=== PATIENT | female | born 1930 | race Caucasian/White ===

== ENCOUNTER 2017-02-13 13:16 | Emergency (ER) | payer OTHER ==
[~2017-02-13] VITALS: Ht 154.9 cm; Wt 73.2 kg
[~2017-02-13 13:16] MED LIST: AMLODIPINE BESYL5 MG PO; ASACOL HD800 MG PO; ASPIRIN325 MG PO; BENTYL20 MG PO; CIPRO500 MG PO; DELZICOL400 MG PO; FLAGYL500 MG PO; FOLIC ACID0.4 MG PO; LOPRESSOR25 MG PO; LOSARTAN POTASS25 MG PO; METOPROLOL TART25 MG PO; PAROXETINE HCL20 MG PO; PAXIL20 MG PO; PRAVASTATIN SOD80 MG PO; SIMVASTATIN40 MG PO; TRAMADOL HCL50 MG PO; VITAMIN B-6100 MG PO; VITAMIN B12-FO1 EACH PO
[2017-02-13] MEDS ORDERED: DOXYCYCLINE MO100 MG PO (15:40)
[2017-02-13 15:55] VITALS: BP 200/95
== END 2017-02-13 15:56 | disposition home or self-care (01) ==
LOC: EME 13:16
DX: L03.115 Cellulitis of right lower limb (principal); I10 Essential (primary) hypertension; K21.9 Gastro-esophageal reflux disease without esophagitis; F41.9 Anxiety disorder, unspecified; Z95.1 Presence of aortocoronary bypass graft; Z95.5 Presence of coronary angioplasty implant and graft; Z79.82 Long term (current) use of aspirin; Z87.891 Personal history of nicotine dependence
CPT/HCPCS: 93971; 99281; 99284